=== PATIENT | female | born 1975 | race Two or more races ===

== ENCOUNTER 2021-10-12 20:04 | Emergency (ER) | payer MEDICAID ==
[~2021-10-12] VITALS: Ht 157.5 cm; Wt 67.1 kg
[2021-10-12 20:18] VITALS: BP 169/101
[2021-10-12] MEDS ORDERED: KETOROLAC TROMETHAMINE INJ 60 MG/2 ML VIAL IM ONE (21:00)
[2021-10-12] MEDS ORDERED: KETOROLAC TROMETHAMINE INJ 30 MG/ML VIAL ONE (21:05)
--- NOTE | 2021-10-12 21:11 | NUR ---
PT MEDICATED ORDERED.
[2021-10-12] MEDS ORDERED: IBUP-1955 PO (21:27)
== END 2021-10-12 21:33 | disposition home or self-care (01) ==
LOC: ER 20:07
DX: G44.209 Tension-type headache, unspecified, not intractable (principal); I10 Essential (primary) hypertension
CPT/HCPCS: 96372; 99283; J1885